=== PATIENT | female | born 1970 | race Caucasian/White ===

== ENCOUNTER 2022-06-05 18:19 | Emergency (ER) | payer SELFPAY ==
[~2022-06-05] VITALS: Ht 167.6 cm; Wt 73.0 kg
[2022-06-05] MEDS ORDERED: HYDROCODONE/ACETAMINOPHEN 5/325MG TABLET PO ONE (19:45)
[2022-06-05 21:16] VITALS: BP 112/92
== END 2022-06-05 21:17 | disposition home or self-care (01) ==
LOC: ER 18:19
DX: S83.91XA Sprain of unspecified site of right knee, initial encounter (principal); X50.1XXA Overexertion from prolonged static or awkward postures, initial encounter; Y93.89 Activity, other specified; Y92.89 Other specified places as the place of occurrence of the external cause; Y99.8 Other external cause status
CPT/HCPCS: 73562; 99283